=== PATIENT | male | born 1935 | race Caucasian/White ===

== ENCOUNTER 2016-12-01 20:44 | Inpatient (IN) | payer MEDICARE, BC ==
[~2016-12-01] VITALS: Ht 172.7 cm; Wt 77.2 kg
--- NOTE | ~2016-12-01 | HP ---
ADMIT: 12/01/2016 RM/LOC: 310 [facility] MR#: [id number] [facility]#: [id number] [address] [id number] RAVI PEREZ [address] [place] [address] History and Physical SEX: M AGE: 81 : 1935 DATE OF SERVICE: CHIEF COMPLAINT: Bradycardia which was symptomatic. HISTORY OF PRESENT ILLNESS: Ravi is an 81-year-old white male with a history of atrial fibrillation, coronary artery disease, COPD, and mild dementia, who was seen at [facility]. They changed him from amiodarone to sotalol 80 mg, which he took at approximately 5 o'clock in the evening. About 2 hours later, he began to not feel well. He was lightheaded, mccain in color with a decreased level of consciousness. Brought to the emergency room. There, he was noted to be hypotensive and bradycardic with a heart rate into the 28 to 32 range. Atropine 1 mg, glucagon in addition to 2 atropine, and Zofran were given. He was started on a dopamine drip. Calcium gluconate was given for his elevated potassium. Lasix was also given and a dose of Ativan was given. On arrival, he was anxious and looked horrible. His color was reportedly very dusky and mccain. During the course of his evaluation, he was able to answer question appropriately and interact. When I arrived to evaluate after his decision to be admitted, he was stabilized and continued to be observed. At which time, he was noted to have slowly respirations and grunting as well as difficulty handling secretions. Strong suggestion and possibility that he had an acute stroke. His cardiovascular status was stabilized. He is going to be admitted to the intensive care for further evaluation and monitoring. PAST MEDICAL HISTORY: Bladder cancer. Abdominal aortic aneurysm repair - Ultrasound of the abdomen 02/22 was a 4.1 cm AAA, ultrasound of the abdomen 08/27/2014 was 4.8 cm aneurysm distal abdomen, CT abdomen 02/18/2015 with intraaortic aneurysm measuring 4.9 cm, and cholelithiasis, MRI abdomen 04/24/2015 with multiple hepatic cysts, and 4.9 cm infrarenal AAA, ultrasound 12/25/2014, with large infrarenal AAA 5.2 x 4.4 cm, suggest Vascular Surgery consult, CT/CTA of the abdomen and pelvis 12/31/2015 with infrarenal AAA 85.1 cm, CT/CTA of the abdomen and pelvis 04/02/2016 with interval aortic stent graft with stable 5.4 cm aneurysmal sac. Abnormal liver CT-CT chest 03/22/2015 with indeterminate small hepatic hypodensities up to 10 mL, suggest liver mass protocol, MRI, or PET-CT. MRI of the abdomen 04/24/2015 with multiple small benign liver cyst at 4.9 cm infrarenal AAA. 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 Mccloud at [facility], discussed Pipeline flow diversion stent, but was risky with comorbidities, had been following MRI/MRA 05/16/2012 with atrophy and suprasellar carotid artery aneurysm with right 2.1 and left 1.2 cm. MRI/MRA of the brain 09/20/2014 with large aneurysm of the carotid - bilaterally without change, CT head 07/30/2016 with large suprasellar mass measuring 4.7 x 1.7 cm, MRI/MRA of the brain 07/31/2016 with bilateral cavernous ICA aneurysms that were increased in size. Coronary artery disease - Dr. Jacobson thought silent AL, heart cath on 05/13/2011 with EF 55%, obtuse marginal 01 of 50%, RCA 50%, CABG x1 vessel, SVT from left thigh to RCA in 2011. Echo 07/27/2012 with EF 70% and LVH, nuclear stress test 01/20/2016 was okay. Cholelithiasis - CT abdomen 02/18/2015 with 4.9 cm infra-aortic aneurysm and cholelithiasis. COPD - Matheny's notes mentioned advanced COPD. Colon ADMIT: 12/01/2016 RM/LOC: 310 [facility] MR#: [id number] 2620 [facility]- [address] [place] [id number] RAVI EPREZ [address] [place] [address] History and Physical SEX: M AGE: 81 : 1935 polyps - Colonoscopy 06/23/2013 with hyperplastic polyp. Chronic cough. Dementia and Alzheimer disease per Dr. Wylie, started on Exelon patch. History of vasectomy. Healthcare maintenance - colon 06/23/2013, CT abdomen and pelvis on 02/18/2015, ultrasound abdomen 08/29/2015, PFT 03/28/2015, Holter 04/03/2015 with NSR and occasional PAT, CT chest 03/22/2015, MRI/MRA of the brain 07/31/2016, cardiac cath 05/13/2011, echo 07/31/2016 with EF 55% to 60% and stable AV, ultrasound carotid 07/31/2016. MRI of the abdomen 04/24/2015, modified barium swallow 04/25/2015, CT/CTA abdomen and pelvis 04/02/2016, nuclear stress test 01/20/2016 was okay. EGD 08/02/2016, CT of the head in 07/30/2016. Inguinal hernia repair in 1955 and 1984. History of lung cancer, status post right pneumonectomy 12/15. Right total knee arthroplasty 11/14. History of venous thromboembolism - after joint surgery with PE discovered lung cancer at that time. Mixed hyperlipidemia with increased cholesterol/increased LDL. Hypertension. Hyponatremia. Dysphagia - MBS 04/25/2015. Paroxysmal atrial fibrillation, status post ablation 09/14/2011. Aortic valve replacement - aortic regurgitation status post tissue AVR #27 Dumont (lifesavers Magna Ease tissue valve), echo 07/31/2016 stable valve. Anemia of blood loss - overview due to surgery hemoglobin 8, persistent 07/28. EGD 08/02/2016 syncope. Echo 07/31/2016, MRI 07/31/2016 with increased aneurysm noted, bradycardia, decrease beta-ivon, and stopped Coumadin. MEDICATIONS ON ADMISSION: Include : 1. DuoNeb. 2. Amiodarone 200 mg daily, which was stopped today. 3. Aspirin 81 mg daily. 4. Benicar 40 mg daily. 5. Sotalol 80 mg daily. 6. Tessalon Perles 100 mg q.8 p.r.n. 7. Vitamin D3, 1000 two pills daily. 8. Celexa 10 mg daily. 9. Catapres 0.1 b.i.d. for systolic blood pressure over 150/90. 10.Cardizem CD 180 mg daily. 11.Aricept 10 mg two at night per Dr. Wylie. 12.Mucinex 600 mg b.i.d. 13. p.r.n. 14.Hydrocodone 5/325, 1-2 q.4 p.r.n. 15.Namenda 20 mg one capsule. 16.Protonix 40 mg daily. 17.Potassium 20 mEq daily. 18.Crestor 20 mg daily. ALLERGIES: FENTANYL AND METOPROLOL CAUSING BRADYCARDIA. SOCIAL HISTORY: He is . FAMILY HISTORY: Mother of kidney disease later in life as well as hypertension. Father with brain tumor, who from heart disease at 62 after developing at age 40 hypertension, coronary artery disease . Father ADMIT: 12/01/2016 RM/LOC: 310 [facility] MR#: [id number] [address] [place] [id number] RAVI PEREZ [address] [address] History and Physical SEX: M AGE: 81 : 1935 with heart disease and hypertension. Sister with heart disease at 60 and another sister with hypertension, hyperlipidemia, anxiety disorder, and depression. Brother with heart disease at age 60 hypertension, hyperlipidemia, anxiety, and depression. Heart disease at 62 in maternal grandfather. Daughter with sleep apnea and diabetes. Grand daughter with a seizure disorder and a paternal aunt with dementia and another with diabetes x2. Maternal aunt with diabetes x2, paternal uncle with dimension x2 as well as seizures. He is a former smoker. Alcohol 1 to 4 drinks daily as needed. PHYSICAL EXAMINATION: VITAL SIGNS: Blood pressure 80/30, but not coming up, heart rate is 118/72 on admission. GENERAL: This is a well-developed, well-nourished white male, who is lying in bed. He does look a little uncomfortable. He has popping of his cheeks with respirations. There is a little wide eyed. My suspect that he has had some stroke. HEENT: Normocephalic and atraumatic. Mucous membranes are moist. NECK: Supple. LUNGS: Diminished. CARDIOVASCULAR: Distant regular. ABDOMEN: Soft and nontender. No organomegaly or masses. IMPRESSION: 1. Bradycardia. 2. Hypotension. 3. Atrial fibrillation. 4. Dysarthria. 5. History of lung cancer. 6. Hyperkalemia. DISCUSSION: He had syncope in difficulty with metoprolol back in July. I was a little concerned that he was going to need medication that would slow his heart rate. I was hoping that this strategy would just be control of his rate going forward. He is looking better according to the nurses, etc. We will continue to monitor his heart rate on dopamine to assist his blood pressure and heart rate. We will stop the sotalol as I think that might be the culprit. Especially since he had a reaction to metoprolol in July causing severe bradycardia and syncope. I did discuss again with family he is a DNR/DNI. He is much more comfortable after a dose of IV Tylenol. We will continue to monitor. Shavon Conley MD/ marla JOB #: [id number] CC: Shavon Conley, Attending Physician Shavon Conley, Family Physician
[~2016-12-01 20:44] MED LIST: ASPIRIN EC81 MG PO; BENICAR40 MG PO; CARDIZEM LA180 MG PO; CATAPRES-DPS0.1 MG PO; CORDARONE DPS200 MG PO; DONEPEZIL HCL10 MG PO; DUONEB DPS3 ML IH; KLOR-CON M2020 ME1 PO; MUCINEX600 MG PO; NAMENDA XR28 MG PO; PROTONIX40 MG PO; ROSUVASTATIN CA20 MG PO; VITAMIN D31000 UNI1 PO
--- NOTE | 2016-12-06 01:31 | ER ---
ADMIT: 12/01/2016 RM/LOC: 310 [facility] MR#: [id number] [address] [address] RAVI PEREZ [address] [place] [address] Emergency Room Report SEX: M AGE: 81 : 1935 DATE: 12/01/2016 CHIEF COMPLAINT: Weak pulse, pale, nearly passed out. HISTORY OF PRESENT ILLNESS: The patient is an 81-year-old male with multiple medical problems, who comes in with his and his daughter for symptoms of being extremely weak, lethargic, poor color, and weak pulse that have been going on for about 30 to 40 minutes. The patient was seen in the [facility] and was changed from amiodarone to sotalol and had his first dose of sotalol around 5:00 p.m. this evening. Within a couple hours, he came down with the aforementioned symptoms. He is not able to give me a good history as he is lethargic and also has some underlying dementia. REVIEW OF SYSTEMS: Unable to obtain complete review of systems due to his dementia and altered level of consciousness. PAST MEDICAL HISTORY: Significant for coronary artery disease, AFib, COPD, previous PE, history of lung cancer, dementia, inoperable brain aneurysm, bilateral carotid aneurysms. PAST SURGICAL HISTORY: He has had abdominal aortic stent placed. He has a porcine aortic valve and a cardiac stent. MEDICATIONS: See nurse's note. He is on: 1. Diltiazem. 2. Clonidine. 3. Just recently started sotalol and aspirin. ALLERGIES: FENTANYL AND POSSIBLY METOPROLOL. SOCIAL HISTORY: Denies smoking, drug, or alcohol use. He lives with his . PHYSICAL EXAMINATION: See T-sheet. LABORATORY AND IMAGING DATA: White count is 7.2, hemoglobin 9.3, platelets 190. Sodium 133, potassium 6.6, carbon dioxide 23, BUN 29, glucose 187, creatinine 1.7, CK 69, CK-MB 1.7, troponin 0.081, BNP 2266, INR 1.05. Initial EKG showed bradycardia with a junctional rhythm, rate of 19. Repeat EKG shows rate of 72, still has a wide complex, appears to be a junctional rhythm. EMERGENCY DEPARTMENT COURSE: The patient arrived, we got him on the monitor, he is bradycardic. He is lethargic and not able to provide much history, he has a very weak peripheral pulse noted and is pale. Immediately began to look for IV access. We got IV access, he is started with 1 L of normal saline bolus and he was given atropine 1 mg IV. He does have some improvement in his heart rate and mild improvement in his blood pressure with the atropine. He does wake up slightly and has some improved mentation with that also. His color also improved somewhat. His heart rate began to drop some, we gave him ADMIT: 12/01/2016 RM/LOC: 310 [facility] MR#: [id number] [facility] [address] [address] RAVI PEREZ [address] [address] Emergency Room Report SEX: M AGE: 81 : 1935 glucagon 1 mg IV without any improvement. He was then given additional dose of atropine 1 mg IV followed by a 3rd dose of atropine IV. He does show improvement with that, but is still fairly lethargic. He at that point becomes nauseous, so we gave him Zofran 4 mg in two different doses for a total of 8 mg. He begins to become more agitated. He was given dopamine 5 mg/kg per minute at a starting dose and titrate up to 10 mg. His agitation continues. He was given calcium gluconate 2 g IV and insulin 10 units subcu and an amp of D50 for his hyperkalemia. He is also given 20 mg of Lasix IV, and a 2nd liter normal saline bolus. Due to his agitation, he is given 1 mg of IV. During his time in the Emergency Department, I did speak to Dr. Jacobson from Cardiology, and he gave recommendations for starting the dopamine drip. I have also spoken with Dr. Conley, who came and saw the patient in the Emergency Department. I confirmed with the and daughter that the patient is a DNR. The patient is improved as far as his heart rate and blood pressure in the Emergency Department, but is still in critical condition and has quite profound agitation during the 2nd half of his stay in the Emergency Department, which towards the very end changes to decrease overall interaction and his pupils change from about 3 mm and reactive to 5 mm and barely reactive bilaterally. There is concern that the patient has had a stroke. Dr. Conley is aware of his condition when he goes up to the ICU. Plan is to have the patient get a CT of his head on the way up to the ICU. The patient is admitted in critical condition. IMPRESSION: 1. Hypotension. 2. Symptomatic bradycardia. 3. Junctional rhythm. 4. Altered loss of consciousness. 5. Agitation. 6. Dementia. 7. Elevated troponin. A total of 2 hours of critical care time was spent on this patient. Gil Paris MD/ marla JOB #: [id number] CC: Shavon Conley MD, Attending Physician Shavon Conley MD, Family Physician
[2016-12-10] MEDS ORDERED: CELEXA DPS20 MG PO (20:07)
[2016-12-10] MEDS ORDERED: CEFTIN DPS500 MG PO (20:07)
[2016-12-10] MEDS ORDERED: BENICAR40 MG PO (20:07)
[2016-12-10] MEDS ORDERED: KLOR-CON M2020 ME1 PO (20:07)
[2016-12-10] MEDS ORDERED: CRESTOR10 MG PO (20:07)
[2016-12-10] MEDS ORDERED: NAMENDA XR7 MG PO (20:08)
[2016-12-10] MEDS ORDERED: TIAZAC180 MG PO (20:08)
[2016-12-10] MEDS ORDERED: ZITHROMAX250 MG PO (20:08)
[2016-12-10] MEDS ORDERED: DUONEB DPS3 ML IH (20:08)
[2016-12-10] MEDS ORDERED: PEPCID DPS20 MG PO (20:08)
[2016-12-10] MEDS ORDERED: TYLENOL DPS325 MG PO (20:09)
--- NOTE | 2016-12-28 08:37 | DS ---
ADMIT: 12/01/2016 RM/LOC: 422 [facility] MR#: [id number] [address] [address] RAVI PEREZ Fiona [address] [place] [address] Discharge Summary SEX: M AGE: 81 : 1935 ADMISSION DATE: 12/01/2016 DISCHARGE DATE: 12/09/2016 DIAGNOSES: 1. Sick sinus syndrome with symptomatic bradycardia. 2. Hypotension-resolved. 3. RIND with facial droop and right leslie-neglect, improved. 4. Atrial fibrillation-flutter. 5. Dysarthria-resolved. 6. Dementia, mild. 7. History of lung cancer. 8. 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 9. Left lower lobe infiltrate. 10.DNR/DNI (do not resuscitate/do not intubate). 11.Hyperkalemia-resolved. 12.Renal insufficiency. 13.Nausea. 14.Depression. CONSULT: [facility] Cardiology. PROCEDURE: 1. CT head 12/01/2016. 2. MRI of the brain 12/03/2016. 3. POLST form. REASON FOR HOSPITALIZATION: Heart block and hypotension with bradycardia to a heart rate of 28. See H and P. LABORATORY AND X-RAY DATA: Sodium 135, potassium 6.6 on admission, which I question, down to 3.4, a final value of 3.6. Chloride 95, CO2 31, BUN 34 down to 11. Creatinine 1.7 down to 0.9. Blood sugars variable, see chart. Calcium 8.5, phosphorus 5.4, total bilirubin 0.8, total protein 5.6, albumin 2.7, alkaline phosphatase 59, AST 27, ALT 32, magnesium 2.1. GFR was 79, CK 69, CK-MB 1.7, relative index 2.5, troponin 0.081. INR 1.05. White count up 11.2 down to 7. Hemoglobin 9.3, final value 9.2. platelet count 185. Procalcitonin less than 0.05. Lactic acid on admission 2.6 down to 0.5. Blood cultures, sputum all negative. Chest x-ray with mild interstitial thickening and ground-glass opacities which was felt to be atypical infection or edema. CT of the head negative except for the bilateral cavernous internal carotid artery aneurysms which are unchanged. MRI with age-related changes. Bilateral cavernous ICA aneurysms which are unchanged. No acute changes. Final chest x-ray done with no changes. COURSE IN HOSPITAL: Girma was admitted after an episode of heart block with a heart rate of 28. He was hypotensive. Resuscitated in the emergency room. Dopamine was started. IV fluids were run. DuoNebs were given for his pulmonary issues. Antiemetics were ordered. He was confirmed to be a DNR/DNI, and during the hospitalization a POLST form was completed. By the ADMIT: 12/01/2016 RM/LOC: 422 [facility] MR#: [id number] [address] [place] [id number] RAVI PEREZ D [address] [place] [address] Discharge Summary SEX: M AGE: 81 : 1935 following day, things had improved with the exception of him continuing to have left-sided leslie-neglect. This was a marked improvement from issues that had developed in the emergency room. At that time, he became completely aphasic and confused. We continued with therapy. Medications were adjusted in that he was not to receive beta blockers at all. We did restart his Cardizem at a low dose due to the need for some rate control with his atrial fibrillation with rapid ventricular response. So far, he has responded nicely to that. Speech Therapy noted that he needed to have thickening again. This was continued. Cough persisted. He had increasing activity. Restarted some of his medications. He is not on his usual cognitive medications, but he had issues with nausea so medications were slowly restarted. It was clear that he was not able to return home due to weakness. Did plan on going to a swing bed which was at [facility]. This caused him a little bit of anxiety due to his mother having been there and . Family felt this might be contributing to some of his agitation as he really wanted to go home. With agitation came his blood pressure elevations. His Benicar was restarted, and his clonidine was resumed. Everything was going well. Blood pressure had a good response. He had a bed secured at [facility]. On 12/08/2016, he was preparing for dismissal and when he got up for the transport, his blood pressure unexpectedly dropped to 66/30. His color was ashen. He complained of a headache, but he complains of this quite often. Unfortunately, we did go ahead and cancel his transfer for further evaluation. His clonidine was discontinued. Blood pressure returned to 120-130 systolic and nothing else was abnormal. He did receive a few IV fluid boluses. On the day of discharge, things had stabilized. No new developments. He was felt stable for dismissal without clonidine. Might need to restart as needed. I suspect this is tied a little bit to his psychological status. DISCHARGE INSTRUCTIONS: 1. Ceftin 250 b.i.d. for 4 days. 2. Celexa 10 mg daily. 3. Crestor 20 daily. 4. Benicar 40 daily. 5. Potassium 20 mEq daily. 6. Namenda XR 7 mg daily. 7. Pepcid 20 b.i.d. 8. Cardizem CD 180 daily. 9. Zithromax 250 daily for 5 days. 10.DuoNeb q.i.d. ADMIT: 12/01/2016 RM/LOC: 422 [facility] MR#: [id number] [address] [address] RAVI PEREZ [address] [place] [address] Discharge Summary SEX: M AGE: 81 : 1935 11.Vitamin D3 2000 international units daily. 12.Aspirin 81 mg daily. 13.Mucinex 600 b.i.d. p.r.n. 14.Tylenol 650 q.4h p.r.n. We will need to discuss getting on his medications for psychiatry in the future. PT/OT and Speech Therapy at the facility. He will have an appointment with me in 10-14 days. Overall, prognosis is fair. Time spent is 50 minutes including discharge orders from yesterday. Shavon Conley MD/ ajf JOB #: [id number] CC: Shavon Conley MD, Attending Physician Shavon Conley MD, Family Physician . Sar[facility] Harris . [facility]
--- NOTE | 2017-01-01 10:32 | CO ---
ADMIT: 12/01/2016 RM/LOC: 310 [facility] MR#: [id number] [id number] RAVI PEREZ [address] [place] [address] Consultation SEX: M AGE: 81 : 1935 DATE OF CONSULTATION: 12/02/2016 ATTENDING PHYSICIAN: Shavon Conley CONSULTING PHYSICIAN: Warren Reza MD REASON FOR CONSULT: Bradycardia. Gwen Durán RN, scribing for Dr. Warren Reza. HISTORY OF PRESENT ILLNESS: Girma is a pleasant 81-year-old gentleman, I have been asked to see in Cardiology consultation by Dr. Shavon Conley for bradycardia. He is a pleasant 81-year-old gentleman, who follows with Dr. Leon Pa. He was actually seen in clinic yesterday. He has diffuse vascular disease, cerebral aneurysm, prior aortic valve replacement, sinus bradycardia, and paroxysmal atrial fibrillation. He also has significant COPD. Yesterday, in clinic, Girma followed up for his paroxysmal atrial fibrillation. In July, he was placed on amiodarone for rhythm control, and it sounds like he had been maintaining sinus rhythm with that. However, given his history of COPD, it was discussed at that time that long-term use of amiodarone probably was not the best choice of medication for him. He did have some bradycardia in the past with metoprolol. The plan yesterday was to try a low-dose of sotalol 80 mg for rhythm control. He does have history of coronary artery disease with single-vessel bypass, SVG to RCA as well as nonobstructive disease in other arteries and tissue aortic valve replacement in the past. His medications for rhythm control are limited because of this. He is not on anticoagulation for his history of atrial fibrillation because of history of cerebral aneurysm. He also has history of abdominal aortic aneurysm as well. Sotalol 80 mg b.i.d., was ordered with daily EKGs for the next three days for him. Unfortunately, he had taken one dose of his sotalol and had severe hypotension, bradycardia, and ended up coming into the hospital. His pulse was down to the 30s. Looking at EKG last night in the ER his heart rate was 19 and looked like high-grade AV block. He was given multiple doses of atropine, which did improve his heart rate, and placed on Dopamine for blood pressure support. He is not currently on any IV drips. Last night, he did receive some Ativan and he did have episode of questionable stroke-like activity with expressive aphasia and facial drooping, this has resolved. Today, he denies any lightheadedness, chest discomfort, shortness of breath, palpitations, or peripheral edema. He is alert and oriented. PAST MEDICAL HISTORY: 1. Coronary artery disease, status post single-vessel bypass. 2. History of tissue aortic valve replacement. 3. Hyperlipidemia. 4. Peripheral vascular disease with history of AAA. 5. Hypertension. 6. Former tobacco use. 7. Alzheimer's. 8. Bladder cancer, status post chemo. ADMIT: 12/01/2016 RM/LOC: 310 [facility] MR#: [id number] [address] [place] [id number] CHRIS RAVI D [address] [place] [address] Consultation SEX: M AGE: 81 : 1935 9. DVT. 10.Erectile dysfunction. 11.Hiatal hernia. 12.Lung cancer, status post chemotherapy. 13.Osteoarthritis. 14.History of pulmonary emboli. 15.History of cholecystectomy. 16.Lobectomy. 17.Right total knee replacement. 18.Inguinal hernia repair. 19.Vasectomy. 20.History of sinus bradycardia. 21.Sick sinus syndrome. 22.History of AAA stent placement. 23.Bilateral cavernous brain aneurysm. ALLERGIES: FENTANYL. MEDICATIONS: Current medications include: 1. DuoNeb 3 mL inhalation q.i.d. 2. Previously on dopamine drip, this has been discontinued. 3. Ofirmev 100 mL IV q.6 hours. 4. Pepcid 20 mg IV b.i.d. FAMILY HISTORY: Positive family history of coronary disease in brother and father. Positive valvular heart disease in sister. Family history of pancreatic cancer in maternal grandmother. SOCIAL HISTORY: Girma is . He lives at home with his . He has 4 children. He has former tobacco use with a 40 pack year history. He has previous alcohol use. Coffee on a regular basis. Regular diet at home. REVIEW OF SYSTEMS: GENERAL: Denies fatigue, fever, chills, sweats, rash, or weight loss. EYES: Visual changes yesterday have resolved. Wears corrective lenses. ENT: Denies hearing loss or problems with nose, mouth or throat. RESPIRATORY: History of COPD. Denies any hemoptysis. GASTROINTESTINAL: History of gallbladder disease, status post cholecystectomy. History of hiatal hernia. Denies any trouble swallowing or rectal bleeding. GENITOURINARY: History of erectile dysfunction. Denies any urinary tract infections or kidney stones. MUSCULOSKELETAL: History of osteoarthritis. Denies gout. HEMATOLOGY: History of lung cancer, status post right pneumonectomy. History of bladder cancer, history of anemia. NEUROLOGIC: No previous history of stroke or seizure. He has previous history of syncope. He did have some stroke-like symptoms yesterday that has resolved. PSYCHIATRIC: History of dementia with Alzheimer's. Denies depression or ADMIT: 12/01/2016 RM/LOC: 310 [facility] MR#: [id number] [id number] BRIGIDRAVI PALMER Fiona [address] [place] [address] Consultation SEX: M AGE: 81 : 1935 anxiety. PHYSICAL EXAMINATION: VITAL SIGNS: Blood pressure 122/69, heart rate 55, respirations 20, temperature 96.6, oxygenation 93% on O2. GENERAL: Pale, little distant. SKIN: Cylinder, warm and dry. EYES: Sclerae clear. No xanthelasmas. ENT: Oral mucosa is pink and moist. No jugular venous distention or carotid bruits. CHEST: Respirations are even and unlabored. Lungs are clear to auscultation. HEART: Regular rate and rhythm. Soft systolic murmur. ABDOMEN: Soft and nontender. MUSCULOSKELETAL: Gait is normal. EXTREMITIES: Peripheral pulses palpable. No clubbing, cyanosis or edema. PSYCHIATRIC: Alert and oriented. Mood and affect are appropriate. DIAGNOSTIC DATA: Sodium 134, potassium 4.7, BUN 34, creatinine 1.4, glucose 122, magnesium 2.1. CK 69, MB 1.7, troponin 0.081, proBNP 2266. White blood cell count 11.2, hemoglobin 10.4, hematocrit 32.5, platelets 199. ASSESSMENT AND PLAN: 1. Sick sinus syndrome. 2. Paroxysmal atrial fibrillation. 3. Coronary artery disease. 4. Brain aneurysm,off of anticoagulation. 5. abdominal aortic aneurysm, history of prior stent. 6. Possible cerebrovascular accident. Girma is a pleasant 81-year-old gentleman with history of diffuse vascular disease, cerebral aneurysm, prior AVR, sinus bradycardia, and paroxysmal atrial fibrillation. He was put on sotalol yesterday and came in with sinus arrest. After dopamine and atropine, his rates are better. His potassium was 6.6 on arrival and has normalized now. I would suggest permanent pacemaker given his sick sinus syndrome history. They are very reluctant given his multiple comorbidities and poor prognosis. I ADMIT: 12/01/2016 RM/LOC: 310 [facility] MR#: [id number] [id number] RAVI PEREZ Fiona [address] [place] [address] Consultation SEX: M AGE: 81 : 1935 will leave this up to them to discuss and recommend stabilize and monitoring for now. By tomorrow, I would recommend deciding about resuming diltiazem, but I will continue to hold antiarrhythmics at this point. Ultimately, simplifying the regimen as much as possible is the ultimate goal. He is not an anticoagulation candidate given his cerebral aneurysm history. Thank you for the consultation. "I have read and agree with the documentation that has been completed regarding this visit. By signing this record, I attest that the documentation was completed in my physical presence and is an accurate record of the encounter." Gwen Durán RN / Warren Reza MD / marla JOB #: [id number] CC: Shavon Conley, Attending Physician Shavon Conley, Family Physician
== END 2016-12-09 13:46 | DRG 309 ==
LOC: ER 20:44 → 3ICU 22:30 → 4PCU 12-03 15:09
PROVIDERS: ADMIT Internal Medicine
DX: I49.5 Sick sinus syndrome (principal); G45.9 Transient cerebral ischemic attack, unspecified; I67.1 Cerebral aneurysm, nonruptured; I48.92 Unspecified atrial flutter; I95.9 Hypotension, unspecified; E87.5 Hyperkalemia; R47.01 Aphasia; R13.10 Dysphagia, unspecified; K76.89 Other specified diseases of liver; R91.8 Other nonspecific abnormal finding of lung field; J44.9 Chronic obstructive pulmonary disease, unspecified; G30.9 Alzheimer's disease, unspecified; N28.9 Disorder of kidney and ureter, unspecified; F02.80 Dementia in other diseases classified elsewhere, unspecified severity, without behavioral disturbance, psychotic disturbance, mood disturbance, and anxiety; I48.0 Paroxysmal atrial fibrillation; E78.5 Hyperlipidemia, unspecified; I10 Essential (primary) hypertension; M19.90 Unspecified osteoarthritis, unspecified site; K44.9 Diaphragmatic hernia without obstruction or gangrene; N52.9 Male erectile dysfunction, unspecified; I25.10 Atherosclerotic heart disease of native coronary artery without angina pectoris; I71.4 Abdominal aortic aneurysm, without rupture; R47.1 Dysarthria and anarthria; F41.9 Anxiety disorder, unspecified; F32.9 Major depressive disorder, single episode, unspecified; E78.2 Mixed hyperlipidemia; K80.20 Calculus of gallbladder without cholecystitis without obstruction; Z95.4 Presence of other heart-valve replacement; Z95.5 Presence of coronary angioplasty implant and graft; Z85.118 Personal history of other malignant neoplasm of bronchus and lung; Z86.711 Personal history of pulmonary embolism; Z66 Do not resuscitate; Z85.51 Personal history of malignant neoplasm of bladder; Z95.1 Presence of aortocoronary bypass graft; Z96.651 Presence of right artificial knee joint; Z79.82 Long term (current) use of aspirin; Z82.49 Family history of ischemic heart disease and other diseases of the circulatory system; Z87.891 Personal history of nicotine dependence; Z86.718 Personal history of other venous thrombosis and embolism